=== PATIENT | male | born 1960 | race Asian ===

== ENCOUNTER 2019-11-18 00:03 | Emergency (ER) | payer OTHER ==
[~2019-11-18] VITALS: Ht 172.7 cm; Wt 80.7 kg
[2019-11-18 00:03] VITALS: BP 131/70; TEMP 98.4
[2019-11-18 00:53] LABS: PLATELET COUNT 420 K/uL (142-355)
[2019-11-18 00:58] LABS: POTASSIUM 3.7 mmol/L (3.6-5.2)
[2019-11-18] MEDS ORDERED: AMLODIPINE BESYLATE PO (08:47)
[2019-11-18] MEDS ORDERED: ENTERIC COATED325 MG PO (08:48)
[2019-11-18] MEDS ORDERED: LIPITOR40 MG PO (08:48)
[2019-11-18] MEDS ORDERED: HYDRALAZINE50 MG PO (08:49)
[2019-11-18] MEDS ORDERED: LISI20TA11 PO (08:49)
[2019-11-18] MEDS ORDERED: NOVOLOG FL100 UNIT/M SC (08:51)
[2019-11-18] MEDS ORDERED: ZOLOFT25 MG PO (08:51)
[2019-11-18] MEDS ORDERED: OLAN2.5T2 PO (08:52)
== END 2019-11-18 01:48 | disposition other institution (70) ==
LOC: ED 00:07
PROVIDERS: Family Medicine
DX: R46.89 Other symptoms and signs involving appearance and behavior (principal); F25.8 Other schizoaffective disorders; Z11.59 Encounter for screening for other viral diseases; Z04.6 Encounter for general psychiatric examination, requested by authority
CPT/HCPCS: 36415; 80053; 81000; 85027; 87635; 93005; 99285; U0003